=== PATIENT | female | born 1955 | race Caucasian/White ===

== ENCOUNTER 2018-12-17 11:05 | Outpatient (CLI) | payer OTHER ==
[2018-12-17 14:47] LABS: #Basophils 0.1 thou/uL (0.0-0.2); #Eosinphils 0.2 thou/uL (0.0-0.7); #Lymphocytes 2.2 thou/uL (1.20-3.40); #Monocytes 0.5 thou/uL (0.11-0.59); #Neutrophils 3.8 thou/uL (1.40-6.50); %Basophils 0.9 % (0.0-1.0); %Eosinophils 2.5 % (0.0-10.0); %Lymphocytes 32.9 % (21.0-51.0); %Monocytes 7.9 % (0.0-10.0); %Neutrophils 55.9 % (42.0-75.0); Hemoglobin 15.4 g/dL (12.0-16.0); Mean Corpuscular HGB CONC 33.8 g/dL (32.0-36.0); Mean Corpuscular Hemoglobin 30.7 pg (27.0-31.0); Mean Corpuscular Volume 90.8 fL (78.0-98.0); Mean Platelet Volume 8.5 fL (7.4-10.4); Platelet Count 193 thou/uL (130-400); Red Blood Cell (RBC) Count 5.03 mill/uL (4.20-5.40); White Blood Cell (WBC) Count 6.8 thou/uL (4.8-10.8)
[2018-12-17 15:00] LABS: Prothrombin Time 12.8 SEC (12.0-14.7)
[2018-12-17 15:09] LABS: Anion Gap 16 mmol/L (10-20); BUN (Urea Nitrogen) 12 mg/dL (9.8-20.1); Calc. Creatinine Clearance 0 mL/min (70-130); Calcium 10.1 mg/dL (7.8-10.44); Carbon Dioxide 24 mmol/L (23-31); Chloride 104 mmol/L (98-107); Estimated GFR-MDRD 69; Glucose 81 mg/dL (80-115); Potassium 4.5 mmol/L (3.5-5.1); Sodium 139 mmol/L (136-145)
[2018-12-17 15:44] LABS: Bacteria/HPF None Seen HPF (None Seen); RBC/HPF 0-3 HPF (0-3); Squamous Epithelial 0-3 HPF (0-3)
--- NOTE | 2018-12-17 16:22 | EKG ---
Test Reason : Blood Pressure : / mmHG Vent. Rate : 063 BPM Atrial Rate : 063 BPM P-R Int : 190 ms QRS Dur : 084 ms QT Int : 400 ms P-R-T Axes : 057 -05 026 degrees QTc Int : 409 ms Normal sinus rhythm Anterior infarct , age undetermined cannot be excluded Abnormal ECG Confirmed by CRISSY TEJADA ([id number]) on 12/17/2018 4:22:24 PM Referred By: IERO Confirmed By:CRISSY TEJADA
== END 2018-12-17 11:06 | disposition home or self-care (01) ==
LOC: LABBT 11:05
PROVIDERS: ATTEND Orthopaedic Surgery
DX: Z01.812 Encounter for preprocedural laboratory examination (principal); M17.11 Unilateral primary osteoarthritis, right knee
CPT/HCPCS: 80048; 81015; 85025; 85610; 87081; 93005; 93010

== ENCOUNTER 2018-12-17 14:30 | Inpatient (IN) | payer OTHER ==
[2018-12-17 13:24] VITALS: BMI 36.6
[2018-12-30] MEDS ORDERED: Tranexamic Acid 1,000 MG/10 ML VIAL ONE ×2 (06:11→09:42)
[2018-12-30] MEDS ORDERED: Sodium Chloride 0.9% 100 ML ONE (06:11)
[2018-12-30] MEDS ORDERED: ceFAZolin Sodium (SDC) 2 GM/100 ML BAG ONE (06:11)
[2018-12-30] MEDS ORDERED: Vancomycin HCl 1.5 GM in Sodium Chloride 0.9% 250 ML 300 ML IVPB SCH ×2 (06:15→20:00)
[2018-12-30] MEDS ORDERED: Tranexamic Acid 1,000 MG in Sodium Chloride 0.9% 100 ML IVPB SCH ×2 (06:15→09:30)
[2018-12-30] MEDS ORDERED: Midazolam HCl 2 mg/2 ml Vial ONE (06:35)
[2018-12-30] MEDS ORDERED: Fentanyl 100 MCG/2 ML VIAL ONE ×4 (06:35→10:21)
[2018-12-30] MEDS ORDERED: Scopolamine 1.5 mg/72 hour Patch ONE (06:36)
[2018-12-30] MEDS ORDERED: Lidocaine 1% (PF) 30 ML VIAL ONE (06:36)
[2018-12-30] MEDS ORDERED: Ondansetron PF 4 MG/2 ML Vial ONE (06:36)
[2018-12-30] MEDS ORDERED: Bupivacaine PF 0.5% 30 ML VIAL ONE (06:40)
[2018-12-30] MEDS ORDERED: Ondansetron HCl/PF 4 MG/2 ML Vial IVP PRN (07:00)
[2018-12-30] MEDS ORDERED: Promethazine HCl 25 MG/ML VIAL IM PRN ×2 (08:05→09:17)
[2018-12-30] MEDS ORDERED: Ondansetron PF 4 MG/2 ML Vial IVP PRN ×2 (08:05→09:17)
[2018-12-30] MEDS ORDERED: Ropivacaine HCl/PF 250 ML in Premix Bag 1 BAG NERVE BLCK SCH (08:05)
[2018-12-30] MEDS ORDERED: Zolpidem Tartrate 5 MG TAB PO PRN ×2 (08:05→09:17)
[2018-12-30] MEDS ORDERED: traMADol HCl 50 MG TAB PO PRN ×2 (08:05)
[2018-12-30] MEDS ORDERED: Fentanyl 100 MCG/2 ML VIAL SLOW IVP PRN (08:06)
[2018-12-30] MEDS ORDERED: diphenhydrAMINE 25 MG CAP PO PRN (09:17)
[2018-12-30] MEDS ORDERED: Acetaminophen 325 MG TAB PO PRN (09:17)
[2018-12-30] MEDS ORDERED: Famotidine 20 MG TAB PO PRN (09:20)
[2018-12-30] MEDS ORDERED: Aspirin/APAP/Caffeine Tab (Excedrin Migraine) PO PRN (09:20)
[2018-12-30] MEDS ORDERED: Fluticasone Propionate Nasal Spray 16 gm Bottle NASAL PRN (09:20)
[2018-12-30] MEDS: Sodium Chloride 0.9% 1,000 ML IV SCH ×2 (10:58→22:30)
[2018-12-30] MEDS: Ketorolac Tromethamine 30 MG/ML VIAL IVP SCH ×2 (13:37→22:28)
[2018-12-30] MEDS: CEFAZOLIN 2 GM in Sodium Chloride 0.9% 100 ML IVPB SCH ×2 (13:37→22:28)
[2018-12-30] MEDS: HYDROcodone/Acetaminophen 10/325 mg Tablet PO PRN ×3 (13:50→23:16)
--- NOTE | 2018-12-30 16:34 | PDOC.HOSPP ---
- Subjective Subjective: is post op right tkr, no sob or chest pain or palp waiting on PT to ambulate her post op family at bedside - Objective Vital Signs & Weight: Weight Weight 220 lb ROS - Review of Systems All systems: All other ROS were reviewed and found negative. - Medication Medications: Active Medications Generic Name Dose Route Start Last Admin Trade Name Freq PRN Reason Stop Dose Admin Hydrocodone Bitart/Acetaminophen 2 tab 12/30/18 08:05 12/30/18 13:50 Yaphank 10/325 PO 2 tab Q4H PRN Administration PAIN (4-6) Fentanyl 50 mcg 12/30/18 08:06 12/30/18 11:21 Sublimaze SLOW IVP 50 mcg Q1H PRN Administration breakthrough pain Cefazolin Sodium 2 gm/ Sodium 100 mls @ 200 mls/hr 12/30/18 14:00 12/30/18 13 :37 Chloride IVPB 12/30/18 22:29 100 mls Q8HR ALEXANDRA Administration Sodium Chloride 1,000 mls @ 100 mls/hr 12/30/18 09:30 12/30/18 10:58 Normal Saline 0.9% IV Not Given .Q10H ALEXANDRA Ketorolac Tromethamine 15 mg 12/30/18 14:00 12/30/18 13:37 Toradol IVP 01/01/19 14:01 15 mg Q8HR ALEXANDRA Administration - Exam NAD, awake alert Eye: PERRL, anicteric sclera ENT: no oropharyngeal lesions, dry oral mucosa Neck: supple, no JVD Heart: RRR, no gallops Respiratory: no wheezes, no rales Gastrointestinal: soft, non-tender, normal bowel sounds Extremities: no cyanosis, no clubbing Neurological: CN's grossly intact, no focal deficits Musculoskeletal: normal tone, normal strength Psychiatric: normal affect, A&O x 3 Hosp A/P (1) Status post total knee replacement, right Code(s): Z96.651 - PRESENCE OF RIGHT ARTIFICIAL KNEE JOINT Status: Acute Plan: 12/30/2018 (2) HTN (hypertension) Code(s): I10 - ESSENTIAL (PRIMARY) HYPERTENSION Status: Chronic Qualifiers: Hypertension type: essential hypertension Qualified Code(s): I10 - Essential (primary) hypertension (3) Dyslipidemia Code(s): E78.5 - HYPERLIPIDEMIA, UNSPECIFIED Status: Chronic Plan: not on any meds, no allergy to statins (4) Obesity (BMI 30-39.9) Code(s): E66.9 - OBESITY, UNSPECIFIED Status: Chronic Plan: bmi of 36 - Plan post op recovering well perop ekg done on 12/17/2018 has nonspecific changes, no prior MO or cardiac w/u has h/o dyslip, not on any meds, no allergies to statins continue asp bid, tenormin 50mg daily, oral iron fentanyl prn, ropivacaine nr block Mobilize per ortho adv Hemostable will f/u
[2018-12-30] MEDS: Aspirin 81 mg Enteric Coated Tablet PO SCH (20:41)
[2018-12-30] MEDS: Citrucel 500 MG TAB PO SCH (20:41)
[2018-12-30] MEDS: Atenolol 50 MG TAB PO SCH (20:41)
[2018-12-30] MEDS ORDERED: DHA PO SCH (21:00)
[2018-12-30] MEDS ORDERED: FISH OIL PO SCH (21:00)
[2018-12-30] MEDS ORDERED: EPA PO SCH (21:00)
[2018-12-30] MEDS ORDERED: OMEGA PO SCH (21:00)
[2018-12-31 04:51] LABS: Hemoglobin 12.2 g/dL (12.0-16.0); Mean Corpuscular HGB CONC 34.1 g/dL (32.0-36.0); Mean Corpuscular Hemoglobin 30.6 pg (27.0-31.0); Mean Corpuscular Volume 89.5 fL (78.0-98.0); Mean Platelet Volume 7.9 fL (7.4-10.4); Platelet Count 155 thou/uL (130-400); RBC Distribution Width 11.7 % (11.5-14.5); White Blood Cell (WBC) Count 7.7 thou/uL (4.8-10.8)
[2018-12-31] MEDS: Ketorolac Tromethamine 30 MG/ML VIAL IVP SCH ×3 (05:45→21:18)
[2018-12-31] MEDS: Sodium Chloride 0.9% 1,000 ML IV SCH ×2 (05:58→16:38)
[2018-12-31] MEDS: Aspirin 81 mg Enteric Coated Tablet PO SCH ×2 (07:50→21:21)
[2018-12-31] MEDS: HYDROcodone/Acetaminophen 10/325 mg Tablet PO PRN ×4 (07:53→21:19)
[2018-12-31] MEDS: Ferrous Gluconate 324 MG TAB PO SCH ×2 (07:53→17:05)
[2018-12-31] MEDS: Multivitamin W/ Minerals 1 TAB PO SCH (07:53)
[2018-12-31] MEDS: Senokot S 8.6-50 MG TAB PO SCH ×2 (07:55→21:20)
[2018-12-31] MEDS ORDERED: Ketotifen Fumarate 0.025% Ophth Soln 5 ml Bottle EA EYE SCH (09:00)
--- NOTE | 2018-12-31 09:25 | PRG ---
DATE OF SERVICE: 12/31/2018 SUBJECTIVE: Pratima is a 63-year-old female, who is postop day 1 from a right total knee arthroplasty. She is doing very well this morning. Her pain is controlled with [place], and she is sitting up, eating breakfast, and in good spirits. She ambulated out the door yesterday evening. OBJECTIVE: VITAL SIGNS: Temperature 98.1, pulse 73, respiratory rate 18, unlabored, and O2 saturation is 98% on room air, blood pressure is 118/77. GENERAL: She is alert and oriented to person, place, time, and situation, grossly nonfocal. Appropriate responsive with examiner. EXTREMITIES: Her incision is clean. No strike through is noted. She is neurovascularly intact in the right lower extremity. Good digital excursion is noted. No shortening or malrotation is noted in the right lower extremity. LABORATORY DATA: Hemoglobin and hematocrit 12.2 and 35.8. IMPRESSION: A 63-year-old female postoperative day 1, right total knee arthroplasty, doing very well. PLAN: Continue current care. Discharge to home tomorrow. Job ID: [id number]
--- NOTE | 2018-12-31 18:22 | PDOC.HOSPP ---
- Subjective Subjective: no sob or palp feels better, at bedside - Objective Vital Signs & Weight: Vital Signs (12 hours) Temp Pulse Resp BP BP Pulse Ox 12/31/18 15:35 99.1 F 77 18 152/76 H 98 12/31/18 08:00 98 12/31/18 07:29 98.1 F 73 18 148/81 H 98 Weight Admit Weight 220 lb Weight 220 lb I&O: 12/30/18 12/31/18 01/01/19 06:59 06:59 06:59 Intake Total 3020 Output Total 2350 Balance 670 Result Diagrams: 12/31/18 04:41 ROS - Review of Systems All systems: All other ROS were reviewed and found negative. - Medication Medications: Active Medications Generic Name Dose Route Start Last Admin Trade Name Freq PRN Reason Stop Dose Admin Hydrocodone Bitart/Acetaminophen 1 tab 12/30/18 08:05 12/31/18 16:59 Albin 10/325 PO 1 tab Q4H PRN Administration Pain (1-3) Hydrocodone Bitart/Acetaminophen 2 tab 12/30/18 08:05 12/30/18 23:16 Albin 10/325 PO 2 tab Q4H PRN Administration PAIN (4-6) Aspirin 81 mg 12/30/18 21:00 12/31/18 07:50 Ecotrin PO 81 mg BID ALEXANDRA Administration Atenolol 50 mg 12/30/18 21:00 12/30/18 20:41 Tenormin PO 50 mg HS ALEXANDRA Administration Fentanyl 50 mcg 12/30/18 08:06 12/30/18 11:21 Sublimaze SLOW IVP 50 mcg Q1H PRN Administration breakthrough pain Ferrous Gluconate 324 mg 12/31/18 08:00 12/31/18 17:05 Fergon PO 324 mg BID-WM ALEXANDRA Administration Sodium Chloride 1,000 mls @ 100 mls/hr 12/30/18 09:30 12/31/18 16:38 Normal Saline 0.9% IV Not Given .Q10H ALEXANDRA Iron/Minerals/Multivitamins 1 tab 12/31/18 09:00 12/31/18 07:53 Theragran M PO 1 tab DAILY ALEXANDRA Administration Ketorolac Tromethamine 15 mg 12/30/18 14:00 12/31/18 16:50 Toradol IVP 01/01/19 14:01 15 mg Q8HR ALEXANDRA Administration Ketotifen Fumarate 1 drop 12/31/18 09:00 12/31/18 11:36 Zaditor 0.025% Ophth Soln EA EYE Not Given DAILY ALEXANDRA Methylcellulose 500 mg 12/30/18 21:00 12/30/18 20:41 Citrucel PO 500 mg HS ALEXANDRA Administration Senna/Docusate Sodium 2 tab 12/31/18 09:00 12/31/18 07:55 Senokot S PO Not Given BID ALEXANDRA - Exam NAD, awake alert Eye: PERRL, anicteric sclera ENT: no oropharyngeal lesions, dry oral mucosa Neck: supple, no JVD Heart: RRR, no murmur Respiratory: no wheezes, no rales Gastrointestinal: soft, non-tender, normal bowel sounds Extremities: no cyanosis, no clubbing Neurological: CN's grossly intact, no focal deficits Musculoskeletal: normal tone, normal strength Psychiatric: normal affect, A&O x 3 Hosp A/P (1) Status post total knee replacement, right Code(s): Z96.651 - PRESENCE OF RIGHT ARTIFICIAL KNEE JOINT Status: Acute (2) HTN (hypertension) Code(s): I10 - ESSENTIAL (PRIMARY) HYPERTENSION Status: Chronic Qualifiers: Hypertension type: essential hypertension Qualified Code(s): I10 - Essential (primary) hypertension (3) Dyslipidemia Code(s): E78.5 - HYPERLIPIDEMIA, UNSPECIFIED Status: Chronic (4) Obesity (BMI 30-39.9) Code(s): E66.9 - OBESITY, UNSPECIFIED Status: Chronic - Plan hemostable likely dc plan in am is amb with PT continue asp bid, oral iron, tenormin will f/u
[2018-12-31] MEDS: Atenolol 50 MG TAB PO SCH (21:20)
[2018-12-31] MEDS: Citrucel 500 MG TAB PO SCH (21:20)
[2019-01-01] MEDS: Sodium Chloride 0.9% 1,000 ML IV SCH (00:24)
[2019-01-01] MEDS: HYDROcodone/Acetaminophen 10/325 mg Tablet PO PRN ×2 (04:13→10:08)
[2019-01-01 05:15] LABS: Hemoglobin 12.4 g/dL (12.0-16.0); Mean Corpuscular HGB CONC 34.6 g/dL (32.0-36.0); Mean Corpuscular Hemoglobin 31.2 pg (27.0-31.0); Mean Corpuscular Volume 90.4 fL (78.0-98.0); Mean Platelet Volume 8.4 fL (7.4-10.4); Platelet Count 149 thou/uL (130-400); RBC Distribution Width 11.8 % (11.5-14.5); Red Blood Cell (RBC) Count 3.98 mill/uL (4.20-5.40); White Blood Cell (WBC) Count 7.3 thou/uL (4.8-10.8)
[2019-01-01] MEDS: Ketorolac Tromethamine 30 MG/ML VIAL IVP SCH (05:25)
[2019-01-01] MEDS: Aspirin 81 mg Enteric Coated Tablet PO SCH (09:33)
[2019-01-01] MEDS: Multivitamin W/ Minerals 1 TAB PO SCH (09:33)
[2019-01-01] MEDS: Senokot S 8.6-50 MG TAB PO SCH (09:33)
--- NOTE | 2019-01-01 12:11 | OP ---
DATE OF PROCEDURE: 12/30/2018 CUT OUT WORKER: Son Hawk PA-C PREOPERATIVE DIAGNOSIS: Right knee arthritis. POSTOPERATIVE DIAGNOSIS: Right knee arthritis. PROCEDURE PERFORMED: Right total knee replacement using Wong pinless navigation. ESTIMATED BLOOD LOSS: Minimal. ANESTHESIA: The patient did have a general anesthetic as well as a preoperative bone. IMPLANTS: To the right knee include a Wong Triathlon total knee system. The femur was a size 4 cruciate retained femur. We used a size 3 tibial baseplate. We used a 3 x 11 mm CS tibial insert and an asymmetric 29 x 9 X3 patella. DISPOSITION: She did go to recovery room in stable condition. INDICATIONS: A 63-year-old female, who has failed all nonoperative treatment for end-stage right knee osteoarthritis. At this time, she was having pain with all daily activities and wished to have the knee replaced. PROCEDURE IN DETAIL: After all appropriate consent forms were explained and signed, the patient was taken back to the operating room and at this time was given general anesthetic. Once the level of anesthesia was appropriate, a well-padded tourniquet was placed on the right leg, and the leg was then prepped and draped in standard surgical fashion. The limb was exsanguinated and tourniquet taken up to 300 mmHg. Midline incision was made with a 10 blade down through the skin and subcutaneous tissue. Bovie electrocautery was used to coagulate any brisk venous bleeding. A new blade was used to make a medial parapatellar arthrotomy. Small subperiosteal release was performed medially and excess fat pad was removed. The knee was flexed up to gain access to the femur. The femur was navigated and distal femoral resection was made. Epicondylar access was used to align our sizing jig and this was pinned in place. We sized our femur to be a size 4 cruciate retained femur. 4:1 cutting block was applied and pinned. Anterior and posterior chamfer cuts were then made. We navigated out our proximal tibia and made our proximal tibial resection. Spreaders were used to remove any posterior osteophytes off the back of the femur as well as remaining meniscal tissue. A long alignment nella was then used to achieve correct rotation of our tibial baseplate and a size 3 tibial baseplate was chosen. This was pinned in place. We trialed the polyethylene and a 3 x 11 mm CS tibial insert polyethylene gave us full extension and good stability throughout range of motion. Two towel clips and a saw were used to cut our patella. Three lug nuts were drilled and asymmetric 29 x 9 X3 patella was trialed which sat nicely in the trochlear groove. We then drilled our femur and punched our tibia. All components were removed. The knee was thoroughly irrigated and dried. Cement was mixed into the cement gun on the back table. Components were then placed. The knee was held out in full extension until the cement had dried. All excess bone cement was removed. Multiple #2 Vicryl stitches as well as a Quill were used to close our extensor mechanism. 0 Quill followed by a running Monoderm was then used to close the skin. Surgicel glue was then used on the skin. Once this had dried, soft tissue dressing was applied to the limb, tourniquet was let down, and the toes pinked up nicely. The patient was then awakened and taken to the recovery room in stable condition. All counts were correct at the end of the case. The patient did receive preoperative IV antibiotics. The patient was injected with Exparel for postoperative pain relief. Job ID: [id number]
[2019-01-01 12:18] VITALS: BP 123/80; TEMP 97.8
--- NOTE | 2019-01-01 20:59 | DIS ---
DATE OF ADMISSION: 12/30/2018 DATE OF DISCHARGE: 01/01/2019 DISCHARGE DISPOSITION: Home. PRIMARY DISCHARGE DIAGNOSES: Status post right total knee replacement done by Dr. Rogers on 12/30/2018, obesity with BMI of 36, hypertension, dyslipidemia. LABORATORY DATA: Hemoglobin and hematocrit 12 and 36, platelet count 149. DISCHARGE MEDICATIONS: Tenormin 50 mg p.o. at bedtime, Pepcid 20 mg twice daily, Jacquelyn 180 mg p.o. at bedtime p.r.n., fluticasone nasal spray p.r.n., omega-3 fish oil one capsule at bedtime, aspirin 81 mg p.o. twice daily. ALLERGIES: TO CODEINE. DISCHARGE PLAN: The patient to follow up with primary care physician in 1 week. She also needs to have outpatient followup with Dr. Mathew, whose office will call her for an appointment date and time. She needs to follow up with Dr. Rogers as advised. BRIEF COURSE DURING HOSPITALIZATION: The patient was electively admitted by Dr. Rogers on the . She has had right total knee replacement done by Dr. Rogers on 12/30/2018. Postop, [facility] were consulted for comanagement of medical issues. She has remained hemodynamically stable. She is actively participating with physical therapy. There were some EKG changes done on preop EKG on the . The patient has remained chest pain free with no complaints of shortness of breath, palpitations, PND, or orthopnea. I have discussed her findings with Dr. Mathew and his office will call her for a followup appointment for possible stress test in 3 to 4 months. She is otherwise hemodynamically stable and will be discharged shortly. She is cleared by Dr. Rogers for discharge. Please note, I have seen and examined the patient on the day of discharge. Job ID: [id number]
== END 2019-01-01 12:49 | disposition home or self-care (01) | DRG 470 ==
LOC: SJJU 12-30 05:45 → SURG A 12-30 10:40
PROVIDERS: ADMIT Orthopaedic Surgery; ATTEND Orthopaedic Surgery
PROC: 0SRC0J9 Replacement of Right Knee Joint with Synthetic Substitute, Cemented, Open Approach (ICD-10-PCS; principal; 2018-12-30)
DX: M17.11 Unilateral primary osteoarthritis, right knee (principal); I10 Essential (primary) hypertension; E78.5 Hyperlipidemia, unspecified; E66.9 Obesity, unspecified; Z68.36 Body mass index [BMI] 36.0-36.9, adult; Z88.5 Allergy status to narcotic agent
CPT/HCPCS: 36415; 85027; C1713; C1776; J0690; J1885; J2001; J2250; J2405; J2795; J3010; J3370; J3490; J7050; S0020